=== PATIENT | male | born 1990 | race Caucasian/White ===

== ENCOUNTER 2021-06-14 07:53 | Emergency (ER) | payer OTHER, SELFPAY ==
[2021-06-14 08:08] VITALS: BP 131/89; PULSE 105; RESP 18; TEMP 36.1; O2SAT 96; BMI 33.8
[2021-06-14] MEDS: lidocaine 1% INJ 20 mL INTRADERMA (08:24)
--- NOTE | 2021-06-14 08:25 | ED_ITS ---
HPI - Wound/Laceration General: Chief Complaint: Wound/Laceration Stated Complaint: L HAND LAC Time Seen by Provider: 06/14/21 07:57 History of Present Illness: HPI narrative: Patient presents with a laceration to the left hand. 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 Onset (ago): minute(s) Extremity Location: Left: hand Place: work Patient tetanus UTD: Yes Context: accidental Associated symptoms: Reports no associated symptoms; Denies chills or fever(s) Review of Systems Const: Denies: fever(s) or chills Skin/Breast: Reports: other (Laceration to left hand that occurred at work today when the air conditione) Psych: Denies: anxiety Physical Exam Const: COMMON NORMALS: no acute distress GENERAL APPEARANCE: cooperative Psych: COMMON NORMALS: mental status grossly normal Skin: OTHER: Has full range of motion hand able to move the thumb and forefinger without difficulty. Has approximately 2 cm irregular laceration below base of thumb. Area has been cleaned. Area was irrigated out. Area was closed after sterile prep and lidocaine with 3 interrupted sutures. Patient had good range of motion after procedure was done. No loss of sensation or movement. Procedures Laceration Laceration 1: Site: hand Side (If applicable): left Size (cm): 2 Description: stellate Depth: simple, single layer Local Anesthetic: lidocaine 1% Pre-repair: wound explored, irrigated extensively and deep structures intact Skin layer closed with: other (Ethilon) Size (cm): 4-0 Number of sutures: 3 Technique: simple, interrupted Course Vital Signs: Vital signs: Vital Signs Temperature 97.0 F L 06/14/21 08:08 Pulse Rate 105 H 06/14/21 08:08 Respiratory Rate 18 06/14/21 08:08 Blood Pressure 131/89 06/14/21 08:08 Pulse Oximetry 96 06/14/21 08:08 Discharge Plan Discharge Patient Disposition: Home Clinical Impression: Laceration Condition: Stable Discharge Orders: Discharge ED (Routine); Ordered 06/14/21 Ordered By: Rivas Aguilar Referrals: Lucas Frost, [facility] [Primary Care Provider] - Discharge Diet: Usual diet Discharge Activity: Resume usual activity Patient Instructions: Suture Care (ED) Activity Restrictions/Additional Instructions: Has sutures removed in 7 days. Watch for signs symptoms of infection. Keep area clean. Follow-up with any problems occur in the next few days with your primary care, work comp provider. Coding Level of Care Code ED [employer] Operator for Melyssa Jaramillo
== END 2021-06-14 08:40 | disposition home or self-care (01) ==
PROVIDERS: Emergency Provider Nurse Practitioner Family; PCP Nurse Practitioner
DX: S61.412A Laceration without foreign body of left hand, initial encounter (principal); X58.XXXA Exposure to other specified factors, initial encounter
CPT/HCPCS: 12001; 96372; 99282

== ENCOUNTER → 2021-08-22 09:03 | Outpatient (BNVA) | payer OTHER, SELFPAY | PROVIDERS: PCP Nurse Practitioner; Visit Provider Nurse Practitioner Family | DX: Z20.822 Contact with and (suspected) exposure to COVID-19 (principal) | CPT/HCPCS: 87635 ==